=== PATIENT | female | born 1950 | race Caucasian/White ===

== ENCOUNTER → 2022-08-26 17:50 | Outpatient (CLI) | payer OTHER, SELFPAY ==
--- NOTE | 2022-08-26 17:45 | RT.EKG_ITS ---
APPROVED REPORT Exam: Resting ECG Reason for Exam: chronic cough Patient Location: O HR:76 bpm ECG Measurements Heart Rate 76 AXIS PA 207 P 57 QRSd 95 QRS -9 QT 391 T 63 QTc 440 Conclusion Sinus rhythm...normal P axis, V-rate 50- 99 Ventricular bigeminy...bigeminy string>4 w/ V complexes
--- NOTE | 2022-08-26 18:30 | DI.RAD_ITS ---
Exam(s) XR CHEST 2V PA LATERAL EXAM: XR CHEST 2V PA LATERAL CLINICAL HISTORY: cough TECHNIQUE: 2D digital imaging was performed of the chest. Two images were obtained. PA and lateral views were obtained. COMPARISON: CR,RF BARIUM SWALLOW W PA LAT CXR from 07/05/2014 FINDINGS: MEDIASTINUM: Normal. HEART: Normal. PULMONARY VASCULATURE: Normal. LUNGS: Clear. PLEURAL SPACE: No pleural effusion or pneumothorax. BONE:Within normal limits for the patient's age. OTHER FINDINGS:Normal. IMPRESSION: No acute pulmonary findings. DATA REPOSITORY: RADIATION DOSE DELIVERED:
--- NOTE | 2022-08-26 19:25 | DI.VRAD_ITS ---
PROCEDURE INFORMATION: Exam: XR Chest Exam date and time: 08/26/2022 6:54 PM Age: 71 years old Clinical indication: Cough TECHNIQUE: Imaging protocol: Radiologic exam of the chest. Views: 2 views. COMPARISON: No relevant prior studies available. FINDINGS: Lungs: Normal. Pleural spaces: Unremarkable. No pleural effusion. No pneumothorax. Heart/Mediastinum: Normal. Bones/joints: No acute abnormality. IMPRESSION: No acute findings. Dictated and Authenticated by: Rakan Pate MD. Ordering:JAVI Rand MD
== END ==
LOC: DI.CM 18:21 → DI 18:33
PROVIDERS: Visit Provider Physician Assistant
DX: R05.3 Chronic cough (principal); R05.9 Cough, unspecified
CPT/HCPCS: 71046

== ENCOUNTER 2022-08-27 14:44 | Outpatient (CLI) | payer OTHER, SELFPAY ==
[2022-08-27 15:04] LABS: Abs Immature Grans 0.02 10^3/uL (0.0-0.06); Absolute Basophil Count 0.05 10^3/uL (0.0-0.2); Absolute Eosinophil Count 0.11 10^3/uL (0.0-0.7); Absolute Monocyte Count 0.86 10^3/uL (0.1-0.8); Basophils % 0.7; Eosinophils % 1.5; HCT 41.6 % (36.0-46.0); HGB 13.4 g/dL (11.2-15.7); Immature Grans % 0.3; Lymphocytes % 31.3; MCH 30.5 pg (27.0-33.0); MCHC 32.2 % (32.0-36.0); MCV 95 fL (80-95); MPV 10.4 fL (8.0-11.0); Monocytes % 11.7; Neutrophils % 54.5; Platelet Count 209 10^3/uL (130-400); RDW 13.9 % (11.7-14.6); RDW-SD 48.5 fL; WBC 7.34 10^3/uL (4.4-10.8)
[2022-08-27 15:49] LABS: Anion Gap 3.4 mmol/L (3-11); BUN 20 mg/dL (7-18); CO2 29.6 mmol/L (21.0-32.0); CREATININE 1.2 mg/dL (0.55-1.02); Calcium 9.3 mg/dL (8.5-10.1); Chloride 104 mmol/L (98-107); Estimated GFR 48.09 (mL/min/1.73m2); Glucose 117 mg/dL (74-106); NT-proBNP 318 pg/mL (<300); Potassium 5.1 mmol/L (3.5-5.1); Sodium 137 mmol/L (136-145)
== END 2022-08-27 14:45 | disposition home or self-care (01) ==
LOC: LBO 14:44
PROVIDERS: Visit Provider Physician Assistant
DX: R05.9 Cough, unspecified (principal)
CPT/HCPCS: 36415; 80048; 83880; 85025

== ENCOUNTER 2023-11-26 17:59 | Outpatient (CLI) | payer OTHER, SELFPAY ==
[2023-11-26 17:30] LABS: Bilirubin Negative (Negative); Blood Trace-intact (Negative); Clarity Sl Cloudy (Clear); Glucose Negative (Negative); Ketones Negative (Negative); Leukocyte Esterase Trace (Negative); Nitrite Negative (Negative); Specific Gravity 1.015 (1.005-1.025); Urobilinogen 0.2 mg/dL (Up to 0.2); pH 5.5 (5-8)
[2023-11-26 17:45] LABS: Bacteria Rare HPF (Negative); C & S Indicated? No; Casts Negative LPF (Negative); Crystals Negative HPF (Negative); Epithelial Cells Rare HPF (Negative); Mucus Negative (Negative); RBC 0-2 HPF (0-2); WBC 0-2 HPF (0-5)
[2023-11-26 18:11] LABS: COMMENT (LAB VIEW ONLY) 129.14 mg/dL; Microalb ug/mg Crea 5.6 ug/mg Cr
[2023-11-26 18:35] LABS: Anion Gap 6.4 mmol/L (3-11); BUN 18 mg/dL (7-18); CO2 31.6 mmol/L (21.0-32.0); CREATININE 0.9 mg/dL (0.55-1.02); Calculated LDL 84 mg/dL (<100); Chloride 99 mmol/L (98-107); Cholesterol 180 mg/dL (<200); Estimated GFR 67.08 (mL/min/1.73m2); Glucose 84 mg/dL (74-106); HDL Cholesterol 47 mg/dL (40-60); Potassium 4.3 mmol/L (3.5-5.1); Sodium 137 mmol/L (136-145); Triglyceride 247 mg/dL (<150)
== END 2023-11-26 18:00 | disposition home or self-care (01) ==
LOC: LBO 17:59
PROVIDERS: PCP Family Medicine; Visit Provider Family Medicine
DX: I10 Essential (primary) hypertension (principal); R30.0 Dysuria; E11.9 Type 2 diabetes mellitus without complications; Z13.6 Encounter for screening for cardiovascular disorders
CPT/HCPCS: 36415; 80048; 80061; 81003; 81015; 82043; 82570

== ENCOUNTER 2024-12-05 00:32 | Outpatient (CLI) | payer OTHER, SELFPAY ==
--- NOTE | 2024-12-05 14:36 | DI.RAD_ITS ---
Exam(s) XR STERNUM XR CHEST 2V PA LATERAL EXAM: XR CHEST 2V PA LATERAL CLINICAL HISTORY: chest wall pain, cough,r05.3 TECHNIQUE: 2D digital imaging was performed. Two views of the chest. Two views of the sternum COMPARISON: No exams were available for comparison FINDINGS: HEART: Normal size. Aorta: Not dilated. PULMONARY VASCULATURE: Normal. MEDIASTINUM: Unremarkable. LUNGS: Clear. PLEURAL SPACE: No pleural effusion or pneumothorax. BONE:Unremarkable for age. No evidence of rib fracture or thoracic compression fracture. The sternu m appears intact. SOFT TISSUES: Unremarkable. IMPRESSION: No acute abnormality. DATA REPOSITORY: RADIATION DOSE DELIVERED:
== END 2024-12-05 00:52 ==
LOC: DI 00:32
PROVIDERS: PCP Family Medicine; Visit Provider Family Medicine
DX: R05.3 Chronic cough (principal); R07.89 Other chest pain
CPT/HCPCS: 71046; 71120